=== PATIENT | male | born 1980 | race African-American/Black ===

== ENCOUNTER 2018-12-10 21:09 | Emergency (ER) | payer BC ==
[~2018-12-10] VITALS: Ht 188 cm; Wt 136.1 kg
[~2018-12-10 21:09] MED LIST: BACTRIM DS TAB1 EACH PO; BLOOD PRESSURE PILL; FLEXERIL PO; KEFLEX500 MG PO; NORCO 5-325 TA1 EACH PO; NORFLEX100 MG PO; TRAMADOL 50 MG50 MG PO; [UNRECOGNIZED DRUG - CODE]
[2018-12-10 22:12] LABS: ABSOLUTE NEUTROPHILS 2.5 thou/uL (1.4-8.2); BASOPHILS 1.2 % (0.0-2.0); EOSINOPHILS 6.3 % (0.0-3.0); HEMATOCRIT 44.3 % (42.0-52.0); HEMOGLOBIN 14.4 gm/dL (14.0-18.0); LYMPHOCYTES 34.5 % (24.0-44.0); MCH 24.9 pg (26.0-34.0); MCHC 32.6 g/dL (28.0-37.0); MCV 76.4 fL (80.0-100.0); MONOCYTES 7.9 % (1.0-8.0); PLATELET COUNT 249 thou/uL (150-400); POLYS 50.1 % (36.0-66.0); WBC 4.9 thou/uL (4.0-11.0)
[2018-12-10 22:18] LABS: CALCIUM 8.2 mg/dL (8.5-10.1); CREATININE 1.2 mg/dL (0.7-1.3); POTASSIUM 3.4 mmol/L (3.5-5.1)
[2018-12-10 22:24] LABS: ALBUMIN 3.3 g/dL (3.4-5.0); TOTAL BILIRUBIN 0.2 mg/dL (<0.1-1.0); TOTAL PROTEIN 6.5 g/dL (6.4-8.2)
[2018-12-10 22:39] LABS: URINE BILIRUBIN NEGATIVE (Negative); URINE BLOOD 3+ (Negative); URINE CLARITY CLEAR; URINE COLOR YELLOW; URINE GLUCOSE-RANDOM* NEGATIVE (Negative); URINE KETONES NEGATIVE (Negative); URINE LEUKOCYTES-REFLEX NEGATIVE (Negative); URINE NITRITE-REFLEX NEGATIVE (Negative); URINE PROTEIN (DIPSTICK) NEGATIVE (Negative); URINE SPECIFIC GRAVITY >= 1.030 (1.005-1.035); URINE UROBILINOGEN 0.2 E.U./dl (0.2-1.0)
[2018-12-10 22:53] LABS: BACTERIA-REFLEX 1-9 Few /HPF (None Seen); CRYSTALS None Seen /LPF (None Seen); HYALINE CASTS 0-3 Few /LPF (None Seen); MUCUS 4-6 Moderate strn/LPF (None Seen); SQUAMOUS 0-3 Few /LPF (0-3); URINE WBC-REFLEX 0-5 Rare /HPF (0-5)
[2018-12-11 00:10] VITALS: BP 143/92
== END 2018-12-11 00:11 | disposition home or self-care (01) ==
LOC: ER 21:09
PROVIDERS: Emergency Medicine
DX: N34.2 Other urethritis (principal); F17.210 Nicotine dependence, cigarettes, uncomplicated; I10 Essential (primary) hypertension